=== PATIENT | female | born 1955 | race Two or more races ===

== ENCOUNTER 2022-12-17 20:01 | Emergency (ER) | payer MEDICAID ==
[~2022-12-17] VITALS: Ht 154.9 cm; Wt 59.0 kg
--- NOTE | 2022-12-17 20:20 | NUR ---
[id number] FROM HOME WITH C/O LOWER BACK PAIN WITH INCREASING WEAKNESS OF THE LOWER EXTREMETIES. PT IS AAO X 4, ESTONIAN SPEAKING, BACK BRACE IN PLACE, BREATHING UNLABORED. PER REPORT FROM [facility], PATIENT HAS CHRONIC PAIN AND HAD LUMBAR FRACTURE ABOUT A YEAR AGO. PT ATTACHED TO MONITOR AND PULSE OX. AWAITING TO BE SEEN BY
--- NOTE | 2022-12-17 20:32 | NUR ---
TELEPHONE CALL FROM BEVERLY ADAMS'S DAUGHTER [phone], STATED PT HAD A FRACTURE OF THE LUMBAR SPINE AND WAS TREATED AT [facility] RECENTLY. PT WAS ADVISED BY MD TO COME TO ER IF SHE WOULD FEEL LOSS OF SENSATION ON BOTH LEGS. PER PATIENT SHE IS UNABLE TO GET UP AND STAND TODAY. PT IS SCHEDULED FOR A FOLLOW UP WITH HER NEURO AT [facility] TOMORROW 12/18/[address] ALVAREZ. PT'S DAUGHTER EXPRESSED HER WISH FOR PATIENT TO BE TRANSFERRED TO [facility] IF POSSIBLE. MD MADE AWARE.
--- NOTE | 2022-12-17 20:32 | NUR ---
PER PT'S DAUGHTER, PT IS GETTING NORCO 5/325 MG AT HOME
[2022-12-17] MEDS ORDERED: CARISOPRODOL 350 MG TABLET PO ONE (21:30)
[2022-12-17] MEDS ORDERED: MORPHINE SULFATE INJ 4 MG/ML DISP.SYRIN IM ONE (21:30)
[2022-12-17] MEDS ORDERED: DEXAMETHASONE SOD PHOSPHATE 4 MG/ML VIAL IM ONE (21:30)
[2022-12-17] MEDS ORDERED: DEXAMETHASONE SOD PHOSPHATE 10 MG/ML VIAL ONE (21:34)
[2022-12-17] MEDS ORDERED: CARISOPRODOL 350 MG TABLET ONE (21:35)
[2022-12-17] MEDS ORDERED: MORPHINE SULFATE INJ 4 MG/ML DISP.SYRIN ONE (21:35)
--- NOTE | 2022-12-17 21:43 | NUR ---
BROUGHT TO CT DEPT
--- NOTE | 2022-12-17 23:21 | NUR ---
VERIFIED WITH PT'S DAUGHTER, ADDRESS: [id number] [id number].
--- NOTE | 2022-12-17 23:27 | NUR ---
[facility] CALLED FOR BLS GOING [facility] TO [facility] PER [facility] ETA - 1 HR
--- NOTE | 2022-12-18 00:48 | NUR ---
Patient discharged to home in stable condition. Written and verbal after care instructions given to patient and daughter, Cat(over the phone). Correct address/destination given to Arely EMT of [facility] [address]: [id number] [address], verbalized understanding of instruction. Patient picked up by [facility] EMT, with VS within normal limits.
--- NOTE | 2022-12-18 00:55 | NUR ---
Daughter made aware at [phone].
[2022-12-18 00:56] VITALS: BP 121/88
== END 2022-12-18 00:48 | disposition home or self-care (01) ==
LOC: EDBD 20:09 → ER 20:09
DX: S22.070D Wedge compression fracture of T9-T10 vertebra, subsequent encounter for fracture with routine healing (principal); S22.080D Wedge compression fracture of T11-T12 vertebra, subsequent encounter for fracture with routine healing; S32.019D Unspecified fracture of first lumbar vertebra, subsequent encounter for fracture with routine healing; W18.30XD Fall on same level, unspecified, subsequent encounter
CPT/HCPCS: 99285; 72131; 96372 ×2; J1100; J2270